=== PATIENT | male | born 1970 | race American Indian/Alaskan Native ===

== ENCOUNTER 2021-10-11 13:45 | Emergency (ER) | payer SELFPAY ==
--- NOTE | 2021-10-11 14:50 | Emergency Department Report ---
ED General Adult HPI - General Chief complaint: Pain General Stated complaint: JOINT PAIN Time Seen by Provider: 10/11/21 14:43 Source: patient Mode of arrival: Ambulatory Limitations: No Limitations - History of Present Illness Initial comments: Patient presents with multiple issues. He has had arthralgias diffusely. He has a history of arthritis and he states that this is related to his HIV and medication. He came in because he was having arthralgias. He states that he hurts all over. There has been no fever or chills. This is joint pain. He states his muscles do not take. He states that he needs ibuprofen. There is no history of recent travel or trauma. Patient also reports having a genital yeast infection in the skin. He has had t his before associated with his HIV and medication. He is prediabetic. He has not been on medication. He has not been watching his diet. He does not know what his sugars have been doing. He states that there is a family history of diabetes. - Related Data Previous Rx's Medication Instructions Recorded Last Taken Type Fluconazole [Diflucan TAB] 100 mg PO QDAY #7 tablet 10/11/21 Unknown Rx Ibuprofen [Motrin] 600 mg PO Q8H PRN #30 tablet 10/11/21 Unknown Rx ED Review of Systems ROS: Stated complaint: JOINT PAIN Other details as noted in HPI Comment: All other systems reviewed and negative Constitutional: denies: fever Eyes: denies: eye pain ENT: denies: throat pain Respiratory: denies: cough Cardiovascular: denies: chest pain Endocrine: denies: unexplained weight loss Gastrointestinal: denies: abdominal pain Genitourinary: as per HPI Musculoskeletal: as per HPI Skin: as per HPI Neurological: denies: headache Hematological/Lymphatic: denies: easy bruising ED Past Medical Hx - Past Medical History Additional medical history: HIV, prediabetes - Family History Family history: diabetes - Medications Home Medications: Home Medications Medication Instructions Recorded Confirmed Last Taken Type Fluconazole [Diflucan TAB] 100 mg PO QDAY #7 tablet 10/11/21 Unknown Rx Ibuprofen [Motrin] 600 mg PO Q8H PRN #30 tablet 10/11/21 Unknown Rx ED Physical Exam - General Limitations: No Limitations, Other (Pulse ox noted and normal) General appearance: alert, in no apparent distress - Head Head exam: Present: atraumatic, normocephalic - Eye Eye exam: Present: normal appearance, EOMI - ENT ENT exam: Present: normal orophraynx, normal external ear exam - Neck Neck exam: Present: normal inspection. Absent: meningismus - Respiratory Respiratory exam: Present: normal lung sounds bilaterally. Absent: respiratory distress - Cardiovascular Cardiovascular Exam: Present: regular rate, normal rhythm - GI/Abdominal GI/Abdominal exam: Present: soft - Extremities Exam Extremities exam: Present: normal capillary refill - Back Exam Back exam: Absent: CVA tenderness (R), CVA tenderness (L) - Neurological Exam Neurological exam: Present: alert, oriented X3, normal gait. Absent: motor sensory deficit - Psychiatric Psychiatric exam: Present: normal affect, normal mood - Skin Skin exam: Present: warm, dry ED Course Vital Signs 10/11/21 14:04 Temperature 98.7 F Pulse Rate 89 Respiratory 16 Rate Blood Pressure 151/89 [Right] O2 Sat by Pulse 98 Oximetry - Reevaluation(s) Reevaluation #1: 10/11/21 14:50 Glucose ordered. Reevaluation #2: 10/11/21 16:09 Glucose was noted and the patient was discharged ED Medical Decision Making - Medical Decision Making Patient presents with arthralgias which she states is chronic for him. He is requesting ibuprofen. This was administered. He does not have a monoarticular component that would suggest any type of infectious pathology or septic arthritis. He does not have psoriasis. There is no history of recent tick bite. He also reports having a genital yeast infection. He is not diabetic. Patient does not have a fever. He does not appear to be toxic. He has used [id number] topicals without symptomatic improvement. He was placed on Diflucan and referred. Critical Care Time: No Critical care attestation.: If time is entered above; I have spent that time in minutes in the direct care of this critically ill patient, excluding procedure time. ED Disposition Clinical Impression: Cutaneous candidiasis Arthralgia Qualifiers: Joint pain location: unspecified Qualified Code(s): M25.50 - Pain in unspecified joint Disposition: 01 HOME / SELF CARE / HOMELESS Is pt being admited?: No Condition: Stable Instructions: How to Use Cold Therapy, [id number], Musculoskeletal Pain, Genital Yeast Infection, Male Additional Instructions: Drink any water. Continue home medication. Return for problems. Follow-up with a local physician here or your regular doctor when you return home. Prescriptions: Fluconazole [Diflucan TAB] 100 mg PO QDAY #7 tablet Ibuprofen [Motrin] 600 mg PO Q8H PRN #30 tablet PRN Reason: Pain Referrals: PRIMARY CARE, [Primary Care Provider] - 3-5 Days JOCELYNN MORRISSEY MD [Staff Physician] - 3-5 Days
[2021-10-11 16:30] VITALS: BP 140/89
== END 2021-10-11 16:35 | disposition home or self-care (01) ==
LOC: ED 13:45
DX: B37.2 Candidiasis of skin and nail (principal); M25.50 Pain in unspecified joint
CPT/HCPCS: 82962; 99282

== ENCOUNTER 2022-05-26 15:17 | Emergency (ER) | payer SELFPAY ==
[2022-05-27 05:14] VITALS: BP 158/93
[2022-05-27] MEDS ORDERED: LIDOCAINE-MPF (1%) 10 MG/1 ML VIAL 5 ML INFILTRATI ONE (06:31)
--- NOTE | 2022-05-27 06:38 | Emergency Department Report ---
ED Male HPI - General Chief complaint: Urogenital-Male Stated complaint: STD Time Seen by Provider: 05/27/22 06:31 Source: patient Mode of arrival: Ambulatory Limitations: No Limitations - History of Present Illness MD Complaint: penile discharge, dysuria -: Gradual Location: penis Radiation: none Severity: mild Quality: burning Consistency: constant Improves with: none Worsens with: urination new sexual partner dysuria. denies: discharge, swelling, blood in urine, nausea/vomiting, incontinence - Related Data Previous Rx's Medication Instructions Recorded Last Taken Type Fluconazole [Diflucan TAB] 100 mg PO QDAY #7 tablet 10/11/21 Unknown Rx Ibuprofen [Motrin] 600 mg PO Q8H PRN #30 tablet 10/11/21 Unknown Rx Azithromycin [Zithromax TAB] 1,000 mg PO ONCE #2 tablet 05/27/22 Unknown Rx metroNIDAZOLE [Flagyl] 2,000 mg PO ONCE #4 tablet 05/27/22 Unknown Rx Allergies Allergy/AdvReac Type Severity Reaction Status Date / Time No Known Allergies Allergy Verified 05/26/22 22:02 ED Review of Systems ROS: Stated complaint: STD Other details as noted in HPI ED Past Medical Hx - Past Medical History Previous Medical History?: No Additional medical history: HIV, prediabetes - Surgical History Past Surgical History?: No - Social History Smoking Status: Unknown if ever smoked - Medications Home Medications: Home Medications Medication Instructions Recorded Confirmed Last Taken Type Fluconazole [Diflucan TAB] 100 mg PO QDAY #7 tablet 10/11/21 Unknown Rx Ibuprofen [Motrin] 600 mg PO Q8H PRN #30 tablet 10/11/21 Unknown Rx Azithromycin [Zithromax TAB] 1,000 mg PO ONCE #2 tablet 05/27/22 Unknown Rx metroNIDAZOLE [Flagyl] 2,000 mg PO ONCE #4 tablet 05/27/22 Unknown Rx ED Physical Exam - General Limitations: No Limitations ED Course Vital Signs 05/26/22 05/27/22 05/27/22 21:55 01:05 05:13 Temperature 98.8 F 98.4 F Pulse Rate 96 H 81 85 Respiratory 16 18 14 Rate Blood Pressure 151/89 154/114 Blood Pressure 158/93 [Left] O2 Sat by Pulse 98 95 100 Oximetry Critical care attestation.: If time is entered above; I have spent that time in minutes in the direct care of this critically ill patient, excluding procedure time. ED Disposition Clinical Impression: Possible exposure to STD, Dysuria Disposition: 01 HOME / SELF CARE / HOMELESS Is pt being admited?: No Does the pt Need Aspirin: No Condition: Stable Instructions: Safe Sex, Dysuria Referrals: [facility] Depart [Outside] - 3-5 Days
== END 2022-05-27 19:00 | disposition home or self-care (01) ==
LOC: ED 15:17
DX: R30.0 Dysuria (principal); R36.9 Urethral discharge, unspecified; Z20.2 Contact with and (suspected) exposure to infections with a predominantly sexual mode of transmission; Z79.899 Other long term (current) drug therapy
CPT/HCPCS: 96372; 99282; J0696; J3490